=== PATIENT | male | born 1950 | race Caucasian/White ===

== ENCOUNTER 2024-01-02 21:23 | Emergency (ER) | payer MEDICARE, OTHER ==
[~2024-01-02] VITALS: Ht 180.3 cm; Wt 100.0 kg
[~2024-01-02 21:23] MED LIST: ACET-2247 PO; BISA10SU11 PR; CARV6.2534 PO; DOCU-385 PO; DULA0.75 SQ; EZET10TA57 PO; FAMO20 PO; FOSI20TA98 PO; FURO40TA5 PO; INSU100I47 SQ; INSU100I94 SQ; RIVA20TA PO
[2024-01-02 22:27] VITALS: TEMP 98.8
[2024-01-02 22:39] LABS: BASOPHILS % (AUTO) 0.5 % (0.0-2.0); EOSINOPHILS % (AUTO) 1.5 % (1.0-6.0); HEMATOCRIT 45.4 % (41-53); HEMOGLOBIN 14.8 g/dL (13.5-17.5); LYMPHOCYTES # (AUTO) 2.5 K/uL (1.0-4.8); MEAN CORPUSCULAR HEMOGLOBIN 30.8 pg (26.0-34.0); MEAN CORPUSCULAR HGB CONC 32.6 G/dL (31.0-37.0); MEAN CORPUSCULAR VOLUME 94 fL (80-100); MONOCYTES # (AUTO) 0.9 K/uL (0.1-1.0); MONOCYTES % (AUTO) 9.9 % (2.0-9.0); NEUTROPHILS # (AUTO) 5.6 K/uL (1.8-7.7); NEUTROPHILS % (AUTO) 61.1 % (40.0-70.0); PLATELET COUNT (AUTO) 184 K/uL (150-450); RED BLOOD CELL COUNT(AUTO) 4.81 MIL/uL (4.50-5.90); WHITE BLOOD COUNT (AUTO) 9.1 K/uL (4.5-11.0)
[2024-01-02 22:51] LABS: ANION GAP 2 mmol/L (8-16); CALCIUM, TOTAL 8.4 mg/dL (8.8-10.5); CARBON DIOXIDE 31 mmol/L (22-29); CHLORIDE 103 mmol/L (98-107); GLOMERULAR FILTR. RATE CALC > 60 mL/min (>60); GLUCOSE,RANDOM 136 mg/dL (70-110); POTASSIUM 3.9 mmol/L (3.5-5.1); SODIUM SERUM 136 mmol/L (136-145); UREA NITROGEN, BLOOD 12 mg/dL (7-18)
[2024-01-02 23:11] LABS: COVID AG,FIA SOURCE NASAL SWAB
[2024-01-02 23:11] LABS: ALCOHOL, BLOOD (SERUM) < 3 mg/dL (0-10)
[2024-01-02 23:23] LABS: SARS-COV2 (COVID) ANTIGEN,FIA Negative (Negative)
[2024-01-02 23:39] LABS: PH,URINE DRUG SCREEN 6.5 (5.0-8.0)
[2024-01-02 23:42] LABS: ALCOHOL, URINE DRUG SCREEN NEGATIVE (NEGATIVE); AMPHET/METH SCREEN,URINE NEGATIVE (NEGATIVE); BARBITURATE SCREEN, URINE NEGATIVE (NEGATIVE); BENZODIAZEPINES SCREEN,URINE NEGATIVE (NEGATIVE); CANNABINOID SCREEN,URINE NEGATIVE (NEGATIVE); COCAINE SCREEN,URINE NEGATIVE (NEGATIVE); METHADONE SCREEN, URINE NEGATIVE (NEGATIVE); OPIATE SCREEN,URINE NEGATIVE (NEGATIVE); PHENCYCLIDINE SCREEN,URINE NEGATIVE (NEGATIVE)
[2024-01-03] MEDS: HALOPERIDOL 5 MG TABLET PO ONE (00:14)
[2024-01-03 01:34] LABS: APPEARANCE,URINE CLEAR (CLEAR); BILIRUBIN,URINE NEGATIVE (NEGATIVE); COLOR,URINE COLORLESS (YELLOW); GLUCOSE, URINE (UA) NEGATIVE (NEGATIVE); KETONES,URINE NEGATIVE (NEGATIVE); LEUKOCYTE ESTERASE ,URINE NEGATIVE (NEGATIVE); NITRATE,URINE NEGATIVE (NEGATIVE); OCCULT BLOOD,URINE NEGATIVE (NEGATIVE); PH,URINE 6.5 (5.0-8.0); PROTEIN,URINE NEGATIVE (NEGATIVE); SPECIFIC GRAVITIY, URINE 1.008 (1.003-1.030); UROBILINOGEN,URINE <=1.0 mg/dL (<=1.0)
[2024-01-03 02:52] VITALS: BP 132/76; PULSE 80; RESP 18
[2024-01-03 11:40] LABS: GLUCOMETER DEV NAME(LOC) ERT.5; GLUCOSE,POINT OF CARE 87 MG/DL (70-110)
== END 2024-01-03 02:54 ==
LOC: EMS 21:23
DX: R45.1 Restlessness and agitation (principal); F41.9 Anxiety disorder, unspecified; J44.9 Chronic obstructive pulmonary disease, unspecified; F32.A Depression, unspecified; E11.9 Type 2 diabetes mellitus without complications; I11.0 Hypertensive heart disease with heart failure; I50.9 Heart failure, unspecified; Z20.822 Contact with and (suspected) exposure to COVID-19
CPT/HCPCS: 99283; 87426; 80048; 82962 ×2; 85025; 36415; 80307; 81003; G0480

== ENCOUNTER 2025-03-03 16:14 | Inpatient (IN) | payer MEDICARE, OTHER ==
[~2025-03-03] VITALS: Ht 180.3 cm; Wt 112.8 kg
[~2025-03-03 16:14] MED LIST changes: +FOSI20TA PO; -FOSI20TA98 PO
[2025-03-03] MEDS ORDERED: INSULIN LISPRO 100 UNITS/ML SQ PRN (16:45)
[2025-03-03] MEDS ORDERED: ACETAMINOPHEN 325 MG TABLET PO PRN (16:45)
[2025-03-03] MEDS ORDERED: DEXTROSE 50%-WATER 25 GM/50 ML SYRINGE IVP PRN (16:45)
[2025-03-03] MEDS ORDERED: ONDANSETRON HCL 4 MG/2 ML VIAL IVP PRN (16:45)
[2025-03-03] MEDS ORDERED: ALBUTEROL SULFATE 2.5 MG/0.5 ML NEB SOLUTION NEB PRN (16:45)
[2025-03-03 17:07] LABS: PLATELET COUNT (AUTO) 192 K/uL (150-450); RED BLOOD CELL COUNT(AUTO) 4.61 MIL/uL (4.50-5.90); RED CELL DISTRIBUTION WIDTH 14.6 % (11.5-14.5); WHITE BLOOD COUNT (AUTO) 8.5 K/uL (4.5-11.0)
[2025-03-03 17:16] LABS: ALCOHOL, BLOOD (SERUM) < 3 mg/dL (0-10)
[2025-03-03 17:19] LABS: CALCIUM, TOTAL 8.7 mg/dL (8.8-10.5); CREATININE 0.67 mg/dL (0.60-1.30); GLOMERULAR FILTR. RATE CALC > 60 mL/min (>60); GLUCOSE,RANDOM 116 mg/dL (70-110); SODIUM SERUM 140 mmol/L (136-145); UREA NITROGEN, BLOOD 18 mg/dL (7-18)
[2025-03-03 17:30] LABS: TROPONIN I-HIGH SENSITIVITY 8 ng/L (<76)
[2025-03-03 17:46] LABS: ASPARTATE AMINOTRANSFERASE 19 U/L (15-37); CREATINE KINASE, TOTAL ONLY 69 U/L (39-308); TOTAL PROTEIN, SERUM 6.3 g/dL (6.4-8.2)
[2025-03-03 19:18] LABS: APPEARANCE,URINE CLEAR (CLEAR); GLUCOSE, URINE (UA) NEGATIVE (NEGATIVE); LEUKOCYTE ESTERASE ,URINE NEGATIVE (NEGATIVE); NITRATE,URINE NEGATIVE (NEGATIVE); OCCULT BLOOD,URINE NEGATIVE (NEGATIVE); PH,URINE DRUG SCREEN 5.5 (5.0-8.0); SPECIFIC GRAVITIY, URINE 1.024 (1.003-1.030)
[2025-03-03 19:25] LABS: ALCOHOL, URINE DRUG SCREEN NEGATIVE (NEGATIVE); AMPHET/METH SCREEN,URINE NEGATIVE (NEGATIVE); BARBITURATE SCREEN, URINE NEGATIVE (NEGATIVE); CANNABINOID SCREEN,URINE NEGATIVE (NEGATIVE); COCAINE SCREEN,URINE NEGATIVE (NEGATIVE); METHADONE SCREEN, URINE NEGATIVE (NEGATIVE)
[2025-03-03] MEDS: DOCUSATE SODIUM 100 MG CAPSULE PO SCH (20:47)
[2025-03-03 21:57] LABS: COVID AG,FIA SOURCE NASAL SWAB
[2025-03-03 22:19] LABS: INFLUENZA TYPE A NEGATIVE FOR TYPE A (NEGATIVE); INFLUENZA TYPE B NEGATIVE FOR TYPE B (NEGATIVE)
[2025-03-03 22:24] LABS: SARS-COV2 (COVID) ANTIGEN,FIA Negative (Negative)
[2025-03-04] MEDS ORDERED: HEPARIN SODIUM,PORCINE 5,000 UNITS/ML VIAL SQ SCH
[2025-03-04] MEDS: OxyCODONE HCL/ACETAMINOPHEN 5-325 MG TABLET PO PRN (01:50)
[2025-03-04] MEDS: ZOLPIDEM TARTRATE 5 MG TABLET PO PRN (03:09)
[2025-03-04 10:11] VITALS: BP 105/68; PULSE 78; RESP 18; TEMP 97.9; O2SAT 97
[2025-03-04 12:31] LABS: GLUCOMETER DEV NAME(LOC) 5N.2C; GLUCOSE,POINT OF CARE 113 MG/DL (70-110)
[2025-03-04] MEDS: FAMOTIDINE 20 MG TABLET PO SCH (12:40)
[2025-03-04 12:43] VITALS: BP 116/77; PULSE 74; RESP 18; TEMP 97.7; O2SAT 97
[2025-03-04 16:33] VITALS: BP 101/71; PULSE 65; RESP 17; TEMP 97.5; O2SAT 98
[2025-03-04] MEDS: RIVAROXABAN 20 MG TABLET PO SCH (17:16)
[2025-03-04 19:53] VITALS: BP 107/69; PULSE 68; RESP 18; TEMP 97.9; O2SAT 95
[2025-03-04] MEDS: MIRTAZAPINE 15 MG TABLET PO SCH (20:54)
[2025-03-04] MEDS ORDERED: GABAPENTIN 300 MG CAPSULE PO PRN (21:30)
[2025-03-05 00:09] VITALS: BP 108/64; PULSE 61; RESP 18; TEMP 97.7; O2SAT 95
[2025-03-05 04:26] VITALS: BP 110/69; PULSE 61; RESP 19; TEMP 97.7; O2SAT 99
[2025-03-05 08:11] VITALS: BP 105/60; PULSE 65; RESP 19; TEMP 97.8; O2SAT 97
[2025-03-05] MEDS: DULoxetine HCL 20 MG CAPSULE PO SCH (08:36)
[2025-03-05] MEDS: GABAPENTIN 300 MG CAPSULE PO SCH (08:36)
[2025-03-05 12:00] VITALS: BP 108/62; PULSE 60; RESP 17; TEMP 98; O2SAT 98
[2025-03-05 12:26] LABS: GLUCOMETER DEV NAME(LOC) 5N.2C; GLUCOSE,POINT OF CARE 111 MG/DL (70-110)
[2025-03-05 12:26] LABS: GLUCOMETER DEV NAME(LOC) 5N.2C; GLUCOSE,POINT OF CARE 92 MG/DL (70-110)
[2025-03-05 12:26] LABS: GLUCOMETER DEV NAME(LOC) 5N.2C; GLUCOSE,POINT OF CARE 103 MG/DL (70-110)
[2025-03-05 12:26] LABS: GLUCOMETER DEV NAME(LOC) 5N.2C; GLUCOSE,POINT OF CARE 93 MG/DL (70-110)
[2025-03-05 16:02] VITALS: BP 104/65; PULSE 64; RESP 18; TEMP 98; O2SAT 97
[2025-03-05 18:00] VITALS: BP 116/72; PULSE 53; RESP 18; TEMP 97.7; O2SAT 98
[2025-03-05] MEDS: MELATONIN 5 MG TABLET PO SCH (21:46)
[2025-03-06 01:01] LABS: GLUCOMETER DEV NAME(LOC) 6S.2; GLUCOSE,POINT OF CARE 94 MG/DL (70-110)
[2025-03-06 04:00] VITALS: BP 101/61; PULSE 66; RESP 18; TEMP 98; O2SAT 98
[2025-03-06 07:54] VITALS: BP 102/56; PULSE 64; RESP 18; TEMP 97.3; O2SAT 95
[2025-03-06 10:06] LABS: GLUCOMETER DEV NAME(LOC) 4E.2; GLUCOSE,POINT OF CARE 110 MG/DL (70-110)
== END 2025-03-06 12:00 | DRG 554 ==
LOC: EMS 16:15 → EDH 16:35 → 5S 03-04 09:50 → 6S 03-05 17:50
PROVIDERS: ADMIT Internal Medicine; ATTEND Internal Medicine
DX: M16.12 Unilateral primary osteoarthritis, left hip (principal); R45.851 Suicidal ideations; I50.32 Chronic diastolic (congestive) heart failure; F33.2 Major depressive disorder, recurrent severe without psychotic features; E78.00 Pure hypercholesterolemia, unspecified; K21.9 Gastro-esophageal reflux disease without esophagitis; I11.0 Hypertensive heart disease with heart failure; G40.909 Epilepsy, unspecified, not intractable, without status epilepticus; F41.9 Anxiety disorder, unspecified; Z20.822 Contact with and (suspected) exposure to COVID-19; I48.0 Paroxysmal atrial fibrillation; J44.9 Chronic obstructive pulmonary disease, unspecified; E11.9 Type 2 diabetes mellitus without complications; Z79.01 Long term (current) use of anticoagulants; Z79.899 Other long term (current) drug therapy
CPT/HCPCS: 71045; 80048; 80076; 80307; 81003; 82550; 82962; 83880; 84484; 85025; 85610; 85730; 87081; 87804; 93005; 93970; 97163; 97530; 99285; G0378; G0480; 36415-L1; 36415-TC